=== PATIENT | male | born 1955 | race African-American/Black ===

== ENCOUNTER 2016-12-20 07:11 | Day surgery (SDC) | payer MEDICARE, MEDICAID ==
[~2016-12-20] VITALS: Ht 182.9 cm; Wt 79.4 kg
[~2016-12-20 07:11] MED LIST: ACET1TAB14 PO; ALLO100T PO; ALPR-392 PO; COLC0.6T66 PO; DOXA4TAB3 PO; DOXA8TAB2 PO; LEVE500T19 PO; MAGN250T10 PO; METO-396 PO; METO25TA6 PO; NEPVIT PO; NIFE30TA83 PO; NIFE60TA35; OMEP20CA10 PO; REN800 PO
[2016-12-20] MEDS ORDERED: GELATIN SPONGE,ABSORBABLE SZ 100 ONE (07:49)
[2016-12-20] MEDS ORDERED: THROMBIN (BOVINE) 5000 UNITS/VIAL TOP ONE (07:50)
[2016-12-20] MEDS ORDERED: BACITRACIN 50,000 UNITS/VIAL ONE (07:50)
[2016-12-20] MEDS ORDERED: BACITRACIN ZINC 15GM TUBE TOP ONE (07:50)
[2016-12-20] MEDS ORDERED: HEPARIN SODIUM 1,000 UNIT/1ML VIAL IV ONE (07:50)
[2016-12-20] MEDS ORDERED: NORMAL SALINE 0.9% 10 ML SYR ONE (07:50)
[2016-12-20] MEDS ORDERED: BUPIVACAINE HCL/PF 0.5% (5MG/ML) 10ML ONE ×2 (07:51→07:52)
[2016-12-20] MEDS ORDERED: LIDOCAINE HCL 1% 20ML VIAL (Pyxis) INJ ONE (07:52)
[2016-12-20] MEDS ORDERED: SODIUM CHLORIDE 0.9% 500 ML IV ONE (08:00)
[2016-12-20] MEDS ORDERED: CLINDAMYCIN 900 MG in DEXTROSE 5% WATER 50 ML IV NR (08:00)
[2016-12-20 08:18] LABS: INR 1.1; PARTIAL THROMBOPLASTIN TIME 32.9 sec (23.4-31.0); PROTHROMBIN TIME 11.5 sec (9.4-11.6)
[2016-12-20 08:28] LABS: BASOPHILS % 0.7 % (0.0-2.0); EOSINOPHILS % 10.8 % (0.0-5.0); HEMATOCRIT. 34.2 % (42.0-52.0); HEMOGLOBIN. 11.3 g/dL (14.0-18.0); LYMPHOCYTES % 30.3 % (20.0-50.0); MEAN CORPUSCULAR HEMOGLOBIN 32.4 pg (28.0-32.0); MEAN CORPUSCULAR VOLUME 97.9 fL (80.0-94.0); MEAN PLATELET VOLUME 10.6 fl (7.4-10.4); MONOCYTES % 7.7 % (2.0-8.0); NEUTROPHILS % 50.5 % (40.0-76.0); PLATELET 67 x1000/uL (130-400); RED BLOOD CELL COUNT 3.49 mill/uL (4.7-6.1)
[2016-12-20] MEDS ORDERED: ALBUMIN HUMAN 12.5G/250ML (5%) IV ONE (09:30)
[2016-12-20] MEDS ORDERED: ALBUMIN HUMAN 12.5GM/50ML (25%) IV ONE (09:30)
[2016-12-20] MEDS ORDERED: MEPERIDINE HCL/PF 25MG/ML CPJ IV PRN (09:45)
[2016-12-20] MEDS ORDERED: LABETALOL HCL 20MG/4ML CARPUJECT IV PRN (09:45)
[2016-12-20] MEDS ORDERED: HYDROMORPHONE HCL/PF 2MG/ML CPJ IV PRN (09:45)
[2016-12-20] MEDS ORDERED: ONDANSETRON HCL 4MG/2ML VIAL IV PRN (09:45)
[2016-12-20] MEDS ORDERED: VASOPRESSIN 20 UNIT/ML 1ML ONE (09:50)
[2016-12-20] MEDS ORDERED: HEPARIN 1000 UNITS/ML 10ML ONE (10:01)
[2016-12-20 11:33] VITALS: BP 162/103
== END 2016-12-20 12:40 | disposition home or self-care (01) ==
LOC: OR 07:11
PROVIDERS: ATTEND Surgery Vascular Surgery
DX: I71.2 Thoracic aortic aneurysm, without rupture (principal); I12.0 Hypertensive chronic kidney disease with stage 5 chronic kidney disease or end stage renal disease; N18.6 End stage renal disease; Z99.2 Dependence on renal dialysis; G40.909 Epilepsy, unspecified, not intractable, without status epilepticus; D69.6 Thrombocytopenia, unspecified; Z88.0 Allergy status to penicillin; Z94.0 Kidney transplant status; B19.20 Unspecified viral hepatitis C without hepatic coma
CPT/HCPCS: 35606; 36415; 80048; 85025; 85610; 85730; 93005; A4216; C1768; J1170; J1644; J2405; J3490; J7040; P9041; P9047; J7060

== ENCOUNTER 2017-01-20 06:55 | Inpatient (IN) | payer MEDICARE, MEDICAID ==
[2017-01-20] VITALS (51 sets, daily range): BP systolic 91–150; BP diastolic 60–111
[~2017-01-20] VITALS: Ht 182.9 cm; Wt 71.2 kg
[2017-01-20] MEDS ORDERED: GELATIN SPONGE,ABSORBABLE SZ 100 ONE (07:52)
[2017-01-20] MEDS ORDERED: IODIXANOL 320MG/ML 100 ML BOTTLE IV ONE (07:56)
[2017-01-20] MEDS ORDERED: LIDOCAINE HCL 1% 20ML VIAL (Pyxis) INJ ONE ×2 (07:56→08:35)
[2017-01-20 08:15] LABS: HEMATOCRIT. 33.9 % (42.0-52.0); HEMOGLOBIN. 11.5 g/dL (14.0-18.0); MEAN CORPUSCULAR HEMOGLOBIN 33.3 pg (28.0-32.0); MEAN CORPUSCULAR VOLUME 98.7 fL (80.0-94.0); MEAN PLATELET VOLUME 9.2 fl (7.4-10.4); PLATELET 86 x1000/uL (130-400); RED BLOOD CELL COUNT 3.44 mill/uL (4.7-6.1); RED CELL DISTRIBUTION WIDTH 17.2 % (11.6-14.6)
[2017-01-20] MEDS ORDERED: HYDROCODONE/ACETAMINOPHEN 5/325MG TABLET PO PRN (08:15)
[2017-01-20 08:24] LABS: INR 1.1; PARTIAL THROMBOPLASTIN TIME 28.4 sec (23.4-31.0); PROTHROMBIN TIME 11.5 sec (9.4-11.6)
[2017-01-20] MEDS ORDERED: SUCCINYLCHOLINE CHLORIDE 200MG/10ML VIAL IV ONE (08:35)
[2017-01-20] MEDS ORDERED: FENTANYL CITRATE/PF 50MCG/ML 2ML VIAL ONE ×2 (08:35→08:45)
[2017-01-20] MEDS ORDERED: PROPOFOL 200MG/20ML VIAL IV ONE (08:35)
[2017-01-20] MEDS ORDERED: MIDAZOLAM HCL 2 MG/2 ML VIAL ONE ×2 (08:35→08:45)
[2017-01-20] MEDS ORDERED: CEFAZOLIN SODIUM 1000MG/VIAL ONE (08:58)
[2017-01-20] MEDS ORDERED: SODIUM CHLORIDE 0.9% 10ML VIAL ONE ×2 (08:58→09:00)
[2017-01-20] MEDS ORDERED: EPHEDRINE SULFATE 50MG/ML VIAL ONE ×2 (09:00→09:13)
[2017-01-20 09:05] LABS: ATYPICAL LYMPHOCYTES 1; PLATELET ESTIMATE DECREASED
[2017-01-20] MEDS ORDERED: IOVERSOL 240MG/ML 100ML BOTTLE IV ONE (09:14)
[2017-01-20] MEDS ORDERED: HEPARIN 1000 UNITS/ML 10ML ONE (09:33)
[2017-01-20] MEDS ORDERED: SODIUM CHLORIDE 0.9% 1,000 ML IV SCH (12:30)
[2017-01-20] MEDS ORDERED: KETOROLAC 15MG/ML VIAL IV PRN (13:00)
[2017-01-20] MEDS ORDERED: HYDROMORPHONE HCL/PF 2MG/ML CPJ IM PRN (15:00)
[2017-01-20] MEDS: LEVETIRACETAM 500MG/5ML CUP PO SCH (17:27)
[2017-01-20] MEDS: SEVELAMER CARBONATE 800 MG TABLET PO SCH (19:06)
[2017-01-20] MEDS: HYDROMORPHONE HCL/PF 2MG/ML CPJ IV PRN (20:41)
[2017-01-20] MEDS: METOPROLOL TARTRATE 25MG TABLET PO SCH (21:00)
[2017-01-20] MEDS ORDERED: DOXAZOSIN MESYLATE 4MG TABLET PO SCH (21:00)
[2017-01-21] VITALS (26 sets, daily range): BP systolic 113–170; BP diastolic 75–107
[2017-01-21] MEDS: HYDROMORPHONE HCL/PF 2MG/ML CPJ IV PRN (00:38)
[2017-01-21 06:11] LABS: BASOPHILS % 0.1 % (0.0-2.0); EOSINOPHILS % 1.3 % (0.0-5.0); HEMATOCRIT. 29.9 % (42.0-52.0); HEMOGLOBIN. 10.3 g/dL (14.0-18.0); LYMPHOCYTES % 11.6 % (20.0-50.0); MEAN CORPUSCULAR HEMOGLOBIN 33.7 pg (28.0-32.0); MEAN PLATELET VOLUME 9.5 fl (7.4-10.4); MONOCYTES % 7.5 % (2.0-8.0); NEUTROPHILS % 79.5 % (40.0-76.0); PLATELET 70 x1000/uL (130-400); RED BLOOD CELL COUNT 3.05 mill/uL (4.7-6.1); RED CELL DISTRIBUTION WIDTH 17.6 % (11.6-14.6)
[2017-01-21 06:30] LABS: PHOSPHORUS 2.9 mg/dL (2.5-4.9)
[2017-01-21] MEDS: SEVELAMER CARBONATE 800 MG TABLET PO SCH (08:40)
[2017-01-21] MEDS: LEVETIRACETAM 500MG/5ML CUP PO SCH ×2 (08:40→08:42)
[2017-01-21] MEDS: METOPROLOL TARTRATE 25MG TABLET PO SCH (08:41)
[2017-01-21] MEDS ORDERED: FOLIC ACID/VITAMIN B COMP W-C TABLET PO SCH (09:00)
[2017-01-21] MEDS ORDERED: ALLOPURINOL 100 MG TABLET PO SCH (09:00)
[2017-01-21] MEDS ORDERED: NIFEDIPINE XL 90MG TAB PO SCH (09:00)
[2017-01-21] MEDS ORDERED: COLCHICINE 0.6MG TABLET PO SCH (16:30)
== END 2017-01-21 12:33 | disposition home or self-care (01) | DRG 219 ==
LOC: OR 06:55 → CVICU 06:56
PROVIDERS: ADMIT Internal Medicine Nephrology; ATTEND Internal Medicine Nephrology
PROC: 02VX3DZ Restriction of Thoracic Aorta, Ascending/Arch with Intraluminal Device, Percutaneous Approach (ICD-10-PCS; principal; 2017-01-20)
DX: I71.2 Thoracic aortic aneurysm, without rupture (principal); N18.6 End stage renal disease; I12.0 Hypertensive chronic kidney disease with stage 5 chronic kidney disease or end stage renal disease; K74.60 Unspecified cirrhosis of liver; Z94.0 Kidney transplant status; B19.20 Unspecified viral hepatitis C without hepatic coma; M10.9 Gout, unspecified; G40.909 Epilepsy, unspecified, not intractable, without status epilepticus; Z99.2 Dependence on renal dialysis
CPT/HCPCS: 33880; 36200; 36415; 75605; 75956; 80048; 83735; 84100; 85025; 85347; 85610; 85730; 93005; A4216; A4657; C1760; C1769; C1874; C1887; C1893; J0171; J0330; J0690; J1170; J1644; J1885; J2250; J2704; J3010; J3490; J7030; L1830; Q9967